=== PATIENT | male | born 1990 | race Caucasian/White ===

== ENCOUNTER 2018-09-28 11:48 | Emergency (ER) | payer OTHER ==
[~2018-09-28] VITALS: Ht 172.7 cm; Wt 127.8 kg
[2018-09-28 11:49] VITALS: BP 129/92
[2018-09-28] MEDS ORDERED: ADACEL/BOOSTRIX VACCINE (DIPHTH/PERTUSS/ACELL/TETANUS)0.5ML SYR (90715) IM ONE (12:30)
[2018-09-28] MEDS ORDERED: CEPHALEXIN 500 MG CAP PO ONE (12:30)
[2018-09-28] MEDS ORDERED: LIDOCAINE 2% W/EPIN INJ 20ML **PRES FREE INJ ONE (12:30)
[2018-09-28] MEDS ORDERED: KEFL500C17 PO (13:36)
== END 2018-09-28 13:45 | disposition home or self-care (01) ==
LOC: M ED 11:48
DX: S81.811A Laceration without foreign body, right lower leg, initial encounter (principal); W22.8XXA Striking against or struck by other objects, initial encounter; Y92.89 Other specified places as the place of occurrence of the external cause; Y93.9 Activity, unspecified; Y99.0 Civilian activity done for income or pay

== ENCOUNTER 2018-10-09 11:26 | Emergency (ER) | payer OTHER ==
[~2018-10-09] VITALS: Ht 172.7 cm; Wt 130.9 kg
[~2018-10-09 11:26] MED LIST: KEFL500C17 PO
[2018-10-09 11:27] VITALS: BP 134/74
== END 2018-10-09 12:03 | disposition home or self-care (01) ==
LOC: M ED 11:26
DX: Z48.02 Encounter for removal of sutures (principal)